=== PATIENT | female | born 1990 | race Caucasian/White ===

== ENCOUNTER → 2024-05-08 14:21 | Outpatient (BNVA) | payer OTHER, SELFPAY | PROVIDERS: Visit Provider Nurse Practitioner Women's Health | DX: Z12.4 Encounter for screening for malignant neoplasm of cervix (principal); Z11.3 Encounter for screening for infections with a predominantly sexual mode of transmission | CPT/HCPCS: 87491; 87591; 87624 ==

== ENCOUNTER → 2025-05-12 15:07 | Outpatient (BNVA) | payer OTHER, SELFPAY | PROVIDERS: Visit Provider Nurse Practitioner Women's Health | DX: R21 Rash and other nonspecific skin eruption (principal) | CPT/HCPCS: 80053; 81000; 82306; 84155; 84165; 85025; 85651; 86140; 86160; 86162; 86235; 86255; 86376 ==

== ENCOUNTER 2025-05-20 12:47 | Outpatient (CLI) | payer OTHER, SELFPAY ==
--- NOTE | 2025-05-20 | MM_ITS ---
NOTE: Report was unsigned for reason: Order was edited. Original Signature date and time was: 05/20/25 @ 1408 WS: [id number] BILATERAL DIAGNOSTIC DIGITAL BREAST MAMMOGRAPHY WITH KORTNEY DISPLACEMENT VIEWS. CAD PERFORMED. HISTORY: MASTODYNIA COMPARISON: None available. Bilateral craniocaudal, ML and mediolateral oblique views are performed with tomosynthesis and SM. Kortney displacement views in CC and MLO projection also performed. Breasts composition: There are scattered areas of fibroglandular density. Implants are intact. No capsular contraction. Marker placed in the upper outer quadrant of the RIGHT breast. No abnormalities identified associated with the markers. No suspicious calcifications. No mass. RIGHT breast ultrasound, limited. No ultrasound abnormality in the RIGHT breast at 9:00. Patient directed ultrasound to the area of concern in the palpable nodule. Normal appearance of the soft tissues. Dictated By: Josy Avendaño DO Signed By: Signed Date/Time: DD/ 1408 MTDD US/US breast RT limited* [id number] IMPRESSION: BI-RADS: 2 - Benign. FOLLOW-UP: Age 42 No mammographic or ultrasound abnormality noted in the RIGHT breast. MM/MM diag BI tomosynthesis [id number]
--- NOTE | 2025-05-20 13:29 | MM_ITS ---
WS: [id number] BILATERAL DIAGNOSTIC DIGITAL BREAST MAMMOGRAPHY WITH KORTNEY DISPLACEMENT VIEWS. CAD PERFORMED. HISTORY: MASTODYNIA COMPARISON: None available. Bilateral craniocaudal, ML and mediolateral oblique views are performed with tomosynthesis and SM. Kortney displacement views in CC and MLO projection also performed. Breasts composition: There are scattered areas of fibroglandular density. Implants are intact. No capsular contraction. Marker placed in the upper outer quadrant of the RIGHT breast. No abnormalities identified associated with the markers. No suspicious calcifications. No mass. RIGHT breast ultrasound, limited. No ultrasound abnormality in the RIGHT breast at 9:00. Patient directed ultrasound to the area of concern in the palpable nodule. Normal appearance of the soft tissues.
== END 2025-05-20 12:48 | disposition home or self-care (01) ==
LOC: RAD 12:48
PROVIDERS: Visit Provider Nurse Practitioner Women's Health
DX: N64.4 Mastodynia (principal); R92.323 Mammographic fibroglandular density, bilateral breasts; N63.11 Unspecified lump in the right breast, upper outer quadrant
CPT/HCPCS: 76641; 76642; 76830; 77062; G0279